=== PATIENT | female | born 1990 | race American Indian/Alaskan Native ===

== ENCOUNTER 2020-04-08 09:01 | Emergency (ER) | payer OTHER ==
[2020-04-08 09:28] VITALS: BP 130/68; PULSE 90; TEMP 97.9; BMI 25.7
== END 2020-04-08 10:30 | disposition home or self-care (01) ==
LOC: JER 09:01
DX: S29.012A Strain of muscle and tendon of back wall of thorax, initial encounter (principal); V47.5XXA Car driver injured in collision with fixed or stationary object in traffic accident, initial encounter
CPT/HCPCS: 99282-25

== ENCOUNTER 2021-02-14 13:55 | Emergency (ER) | payer OTHER ==
[2021-02-14 14:18] VITALS: BP 124/71; PULSE 85; TEMP 98; BMI 24.2
[2021-02-14] MEDS ORDERED: ACETAMINOPHEN 500 MG TABLET (FP) ONE (14:26)
[2021-02-14] MEDS ORDERED: IBUPROFEN 600 MG TABLET (FP) PO ONE ×2 (14:26)
[2021-02-14] MEDS ORDERED: ACETAMINOPHEN 500 MG TABLET (FP) PO ONE (14:26)
== END 2021-02-14 14:40 ==
LOC: JERFT 13:55
DX: S82.832A Other fracture of upper and lower end of left fibula, initial encounter for closed fracture (principal); W09.1XXA Fall from playground swing, initial encounter; Y92.9 Unspecified place or not applicable
CPT/HCPCS: 73610-TC-LT-FY; 73630-TC-LT; 99284-25

== ENCOUNTER 2021-03-03 13:46 | Emergency (ER) | payer OTHER ==
[2021-03-03 14:03] VITALS: BP 126/79; PULSE 88; TEMP 98.2; BMI 28.3
[2021-03-03 14:57] LABS: EOS % 3.5 % (0-4.5); HEMATOCRIT 32.9 % (32.4-45.2); HEMOGLOBIN 11.1 GM/dL (10.7-15.3); MCH 28.4 pg (25.7-33.7); MCHC 33.7 g/dl (32.0-36.0); MEAN CELL VOLUME 84.2 fl (80-96); MEAN PLT VOLUME 8.2 fl (7.5-11.1); MONO % 8.7 % (3.8-10.2); NEUT % 57.8 % (42.8-82.8); PLATELET COUNT 271 10^3/uL (134-434); RBC 3.91 M/mm3 (3.60-5.2); RDW 14.1 % (11.6-15.6); WHITE BLOOD COUNT 6.9 K/mm3 (4.0-10.0)
[2021-03-03 15:12] LABS: CHLORIDE 106 mmol/L (98-107); SODIUM 138 mmol/L (136-145)
[2021-03-03 15:14] LABS: ALBUMIN 3.8 g/dl (3.4-5.0); ANION GAP 5 MMOL/L (8-16); CALCIUM 8.9 mg/dL (8.5-10.1); CO2 26 mmol/L (21-32)
[2021-03-03 15:15] LABS: BLOOD UREA NITROGEN 9.9 mg/dL (7-18); GLUCOSE,RANDOM 92 mg/dL (74-106)
[2021-03-03 15:18] LABS: CREATININE 0.7 mg/dL (0.55-1.3); SGOT/AST 22 U/L (15-37); SGPT/ALT 22 U/L (13-61)
[2021-03-03 15:19] LABS: BILIRUBIN,TOTAL 0.2 mg/dL (0.2-1); TOT PROT 7.7 g/dl (6.4-8.2)
[2021-03-03 15:21] LABS: ALK PHOS 95 U/L (45-117)
== END 2021-03-03 16:28 | disposition home or self-care (01) ==
LOC: JER 13:46
DX: N92.1 Excessive and frequent menstruation with irregular cycle (principal)
CPT/HCPCS: 36415; 80053; 84702; 85025; 86850; 86900; 86901; 99283-25

== ENCOUNTER 2023-11-05 19:49 | Emergency (ER) | payer OTHER ==
[2023-11-05 19:58] VITALS: BP 116/76; PULSE 71; RESP 18; TEMP 97.8; BMI 31.1
== END 2023-11-05 20:57 | disposition home or self-care (01) ==
LOC: JERFT 19:49
DX: S93.401A Sprain of unspecified ligament of right ankle, initial encounter (principal); X50.1XXA Overexertion from prolonged static or awkward postures, initial encounter; Y93.73 Activity, racquet and hand sports
CPT/HCPCS: 73610-TC-RT-FY; 73630-TC-RT-FY; 99283-25